=== PATIENT | female | born 1975 | race Caucasian/White ===

== ENCOUNTER 2018-10-09 20:10 | Emergency (ER) | payer SELFPAY ==
[2018-10-09] MEDS ORDERED: Ondansetron ODT 4 MG TAB ONE (20:36)
--- NOTE | 2018-10-10 07:42 | RAD ---
CHEST 2 VIEWS: DATE: 09/29/2018. FINDINGS: Comparison is made with a 02/14/2015 study. Thoracolumbar scoliosis is noted as usual. The heart is normal in size and the lungs are clear. There is no sign of pneumonia or other infiltrate. There is no vascular congestion or edema. IMPRESSION: No acute thoracic finding. POS: HOME
== END 2018-10-09 21:03 | disposition home or self-care (01) ==
LOC: BURERS 20:10
DX: J01.90 Acute sinusitis, unspecified (principal); F17.210 Nicotine dependence, cigarettes, uncomplicated; Z79.899 Other long term (current) drug therapy
CPT/HCPCS: 71046; 93005; Q0162

== ENCOUNTER 2018-12-28 18:52 | Emergency (ER) | payer SELFPAY ==
[2018-12-28] MEDS ORDERED: Ketorolac Tromethamine 30 MG/ML VIAL ONE (19:21)
[2018-12-28 19:31] LABS: Clarity Cloudy (Clear)
[2018-12-28 19:33] LABS: Bilirubin Negative (Negative); Blood, Urine Negative (Negative); Glucose, Urine (Dipstick) Negative (Negative); Leukocyte Negative (Negative); Nitrite Negative (Negative); Protein, Urine (Dipstick) Negative (Neg-Trace)
[2018-12-28 20:12] LABS: Band 1 % (5-11); Hemoglobin 15.6 g/dL (12.0-16.0); Lymphocytes 44 % (21-51); MDiff Complete? YES; Mean Corpuscular HGB CONC 33.8 g/dL (32.0-36.0); Mean Corpuscular Hemoglobin 33.7 pg (27.0-31.0); Mean Corpuscular Volume 99.5 fL (78.0-98.0); Mean Platelet Volume 6.3 fL (7.4-10.4); Monocytes 6 % (0-10); Neutrophil 49 % (42-75); Platelet Count 310 thou/uL (130-400); RBC Distribution Width 11.7 % (11.5-14.5); Red Blood Cell (RBC) Count 4.63 mill/uL (4.20-5.40); White Blood Cell (WBC) Count 12.5 thou/uL (4.8-10.8)
[2018-12-28 20:13] LABS: ALT (SGPT) 27 U/L (8-55); AST (SGOT) 20 U/L (5-34); Albumin 4.2 g/dL (3.5-5.0); Alkaline Phosphatase 100 U/L (40-150); Anion Gap 13 mmol/L (10-20); BUN (Urea Nitrogen) 11 mg/dL (7.0-18.7); Bilirubin, Total 0.3 mg/dL (0.2-1.2); Calc. Creatinine Clearance 0 mL/min (70-130); Calcium 9.2 mg/dL (7.8-10.44); Carbon Dioxide 23 mmol/L (22-29); Chloride 108 mmol/L (98-107); Estimated GFR-MDRD 81; Globulin 2.9 g/dL (2.4-3.5); Glucose 79 mg/dL (70-105); Potassium 3.5 mmol/L (3.5-5.1); Protein, Total 7.1 g/dL (6.0-8.3); Sodium 140 mmol/L (136-145)
--- NOTE | 2018-12-28 20:21 | CT ---
FEXAM: Abdomen and pelvic CT scan without contrast: HISTORY: Abdominal pain COMPARISON: 08/11/2016 FINDINGS: The visualized lung bases are clear. Liver: Unremarkable. Gallbladder:Surgically absent Pancreas:Unremarkable Spleen:Unremarkable. Adrenal glands:Unremarkable. Kidneys:Punctate nonobstructing right nephrolithiasis.N o discrete left urolithiasis. Bowel: No evidence for bowel obstruction. Urinary Bladder: The urinary bladder is unremarkable. Adenopathy:No adenopathy within the abdomen or pelvis. Free Air: No free air. Ascites: No ascites. Osseous structures: No acute osseous abnormalities. There is a left adnexal hypodensity, incompletely evaluated, approximately 2.7 cm. IMPRESSION: Nonobstructing right nephrolithiasis. Left adnexal hypodensity which may represent an adnexal cyst although should be further interrogated with pelvic ultrasound. Evaluation is otherwise limited on the basis of noncontrast technique.
[2018-12-28] MEDS ORDERED: Fentanyl 100 MCG/2 ML VIAL ONE (20:38)
== END 2018-12-28 21:00 | disposition home or self-care (01) ==
LOC: BURERS 18:52
DX: M54.41 Lumbago with sciatica, right side (principal); F17.210 Nicotine dependence, cigarettes, uncomplicated; Z79.899 Other long term (current) drug therapy
CPT/HCPCS: 74176; 80053; 81003; 85025; 96374; 96375; J1885; J3010

== ENCOUNTER 2019-04-17 12:26 | Emergency (ER) | payer SELFPAY | END 2019-04-17 12:55 | disposition home or self-care (01) | LOC: BURERS 12:26 | DX: H92.01 Otalgia, right ear (principal); M19.90 Unspecified osteoarthritis, unspecified site; F17.200 Nicotine dependence, unspecified, uncomplicated; M41.9 Scoliosis, unspecified; Z79.899 Other long term (current) drug therapy | CPT/HCPCS: 99281 ==

== ENCOUNTER 2019-09-28 22:55 | Emergency (ER) | payer SELFPAY ==
[2019-09-28] MEDS ORDERED: Ciprofloxacin 500 MG TAB ONE (23:19)
[2019-09-28] MEDS ORDERED: Dexamethasone 4 mg/ml Vial ONE (23:19)
== END 2019-09-28 23:31 | disposition home or self-care (01) ==
LOC: BURERS 22:55
DX: J01.90 Acute sinusitis, unspecified (principal); F32.9 Major depressive disorder, single episode, unspecified; K21.9 Gastro-esophageal reflux disease without esophagitis; M19.90 Unspecified osteoarthritis, unspecified site; Z87.891 Personal history of nicotine dependence; Z79.899 Other long term (current) drug therapy
CPT/HCPCS: 99283; J1100

== ENCOUNTER 2019-10-27 14:35 | Emergency (ER) | payer SELFPAY | END 2019-10-27 15:20 | disposition home or self-care (01) | LOC: BURERS 14:35 | DX: R51 Headache (principal); K21.9 Gastro-esophageal reflux disease without esophagitis; M19.90 Unspecified osteoarthritis, unspecified site; F32.9 Major depressive disorder, single episode, unspecified; F17.200 Nicotine dependence, unspecified, uncomplicated; Z79.899 Other long term (current) drug therapy | CPT/HCPCS: 99281 ==

== ENCOUNTER 2020-08-10 20:48 | Emergency (ER) | payer SELFPAY | END 2020-08-10 21:05 | disposition home or self-care (01) | LOC: BURERS 20:48 | DX: L03.114 Cellulitis of left upper limb (principal); M19.90 Unspecified osteoarthritis, unspecified site; K21.9 Gastro-esophageal reflux disease without esophagitis; F32.9 Major depressive disorder, single episode, unspecified; Z87.891 Personal history of nicotine dependence | CPT/HCPCS: 99281 ==